=== PATIENT | female | born 1995 | race Caucasian/White ===

== ENCOUNTER 2024-03-04 11:11 | Emergency (ER) | payer OTHER, SELFPAY ==
--- NOTE | 2024-03-04 11:38 | ED_ITS ---
HPI - Fever General Chief Complaint: Upper Respiratory Symptoms Stated Complaint: Flu symptoms Time Seen by Provider: 03/04/24 12:10 Source: patient Mode of arrival: ambulatory Limitations: no limitations History of Present Illness HPI Narrative: This is a 28-year-old female with no known medical history presents with fatigue, malaise, myalgias, cough, headache, weakness since . Patient took Tylenol at 10:00 and is not really helping symptoms. Denies sick contacts. Denies chest pain, shortness of breath, nausea, vomiting, diarrhea, vision changes dizziness, weakness. NIH stroke scale 0 Related Data Previous Rx's ?Medication ?Instructions ?Recorded albuterol sulfate 90 mcg/actuation 2 inh inhalation Q4-6H PRN 03/04/24 breath activated powder inhaler shortness of breath or wheezing #1 ea benzonatate 100 mg capsule 100 mg PO BID PRN cough #20 caps 03/04/24 Allergies Allergy/AdvReac Type Severity Reaction Status Date / Time amoxicillin Allergy Swelling Verified 03/04/24 11:41 Review of Systems Review of Systems: Yes all other systems are reviewed and are negative [facility] Past Medical History Attestation statement: The following information was validated with the patient. Source: old records reviewed and nursing notes reviewed Social History Social History Advance Directives: No Advance Directives Information Provided: No Physical Exam Vital Signs: Vital Signs: Last Vital Signs Temp 98.7 F 03/04/24 11:39 Pulse 95 03/04/24 11:39 Resp 18 03/04/24 11:39 BP 121/71 03/04/24 11:39 Pulse Ox 98 03/04/24 11:39 O2 Del Method Room Air 03/04/24 11:39 BMI result Body Mass Index 22.6 vss Appearance: Alert.? Oriented X3.? No acute distress.? Head: Normocephalic, atraumatic, no step-offs or deformities Eyes: Pupils equal, round and reactive to light.? ENT: Pharynx normal.? Neck: Normal inspection.? Neck supple.? CVS: Normal heart rate and rhythm.? Pulses normal.? Respiratory: No respiratory distress.? Breath sounds normal.? Abdomen: Soft and nontender.? Skin: Skin warm and dry.? Normal skin color.? Normal skin turgor.? Extremities: No lower extremity edema.? No calf ttp. 5/5 strength to bilateral upper and lower extremities Back: No midline tenderness, no C-spine tenderness, full range of motion, no CVA tenderness bilaterally Neuro: Oriented X 3.? No motor deficit.? No sensory deficit. CN 2-12 intact Course Course Course Narrative: This is a Rapid Medical Examination (RME) in triage, full HPI, ROS, assessment and plan per primary provider in the Main ED. 28 y/o female with history of hypothyroidism who is presenting for evaluation of fever up to 104 at home that started yesterday. +cough and headache. Fever resolved after 1000 mg at tylenol this morning. VSS in triage. Nontoxic appearing. Plan: COVID and Flu swab Reevaluation(s) Reevaluation #1: Influenza positive. No indication for Tamiflu. Supportive measures. Educated patient on diagnosis and treatment plan, answered all question, patient verbalizes understanding. At this time patient will be discharged home, advised to return with new or worsening symptoms. Educated on worrisome signs and symptoms and when to return. At this time I feel comfortable discharge home. Time: 12:50 Medical Decision Making Medical Decision Making [facility] Narrative: 1214 28-year-old female presents with viral symptoms for the past 3 days. No known sick contacts Physical exam benign History and physical exam concerning for viral illness flu versus COVID versus RSV. Unlikely PE, pneumonia, ACS, acute respiratory distress, meningitis or encephalitis. Plan at this time viral testing. Differential Diagnosis Differential Diagnoses: The differential diagnosis associated with the presentation includes History and physical exam concerning for viral illness flu versus COVID versus RSV. Unlikely PE, pneumonia, ACS, acute respiratory distress, meningitis or encephalitis. Admission/Observation Consideration of admission/observation: Escalation of care including admission/observation considered Lab Data MDM Lab Attestation statement: I reviewed the patient's lab results. Labs: Lab Results 03/04/24 Range/Units 11:37 COVID-19 (CHARLES) Negative (Negative) COVID-19 Clin Com See Note Influenza Type A (NANCY) Positive A (Negative) Influenza Type B (NANCY) Negative (Negative) Influenza A & B Note See Note Critical Care Time Critical Care Time Critical Care Time: No Discharge Plan Discharge Clinical Impression: Influenza Patient Disposition: Home, Self-Care Instructions: Influenza (ED) Additional Instructions: Take your medications as prescribed. If you were prescribed antibiotics today, it is important that you take your medication to their entirety, do not skip any doses, do not finish them early. Follow-up with your primary care provider this week. Return to the emergency department with new or worsening symptoms. Such as fevers, chills, chest pain, shortness of breath, nausea, vomiting, dizziness, headache, vision changes, lethargy In case of emergency call 911 You can take ibuprofen every 6 hours Tylenol every 4 as needed for fever, pain or discomfort. Prescriptions: New albuterol sulfate 90 mcg/actuation aerosol powdr breath activated 2 inh inhalation Q4-6H PRN (Reason: shortness of breath or wheezing) Qty: 1 0RF benzonatate 100 mg capsule 100 mg PO BID PRN (Reason: cough) Qty: 20 0RF Referrals: Physician,None [Primary Care Provider] - 2 days Stand Alone Forms: Work/School Release Print Language: Bermudian
[2024-03-04 11:39] VITALS: BP 121/71; PULSE 95; RESP 18; TEMP 37.1; O2SAT 98; BMI 22.6
[2024-03-04 11:59] LABS: COVID-19 Test Negative (Negative); IDNOW Serial# 08D9AD1C
[2024-03-04 12:01] LABS: IDNOW Serial# 152EDE1D; Influenza A Positive (Negative); Influenza B2 Negative (Negative)
[2024-03-04 12:54] VITALS: BP 131/82; PULSE 99; RESP 22; TEMP 37.3; O2SAT 98
[2024-03-04 13:22] VITALS: O2SAT 98
[2024-03-04 13:24] VITALS: BP 131/82; PULSE 99; RESP 20; TEMP 37.3; O2SAT 98
== END 2024-03-04 13:24 | disposition home or self-care (01) ==
PROVIDERS: Physician Assistant; Emergency Provider Student in an Organized Health Care Education/Training Program
DX: J10.1 Influenza due to other identified influenza virus with other respiratory manifestations (principal); M79.10 Myalgia, unspecified site; R51.9 Headache, unspecified; R05.9 Cough, unspecified; Z11.52 Encounter for screening for COVID-19
CPT/HCPCS: 87502; 87635; 99283; 99284

== ENCOUNTER 2025-09-02 08:04 | Emergency (ER) | payer OTHER, SELFPAY ==
[2025-09-02 08:09] VITALS: BP 146/97; PULSE 87; RESP 18; TEMP 36.4; O2SAT 99; BMI 22.5
--- NOTE | 2025-09-02 08:25 | ED_ITS ---
HPI - Back Pain/Injury General Chief Complaint: Back Pain/Injury Stated Complaint: Back pain and spasms Time Seen by Provider: 09/02/25 08:24 Source: patient Mode of arrival: ambulatory Limitations: no limitations History of Present Illness ED Provider: Lorri Mackey PA-C HPI Narrative: Patient seeks medical attention today for evaluation of back pain. Past medical history significant for disc herniation at the L4-L5 level. 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 She reports after this was sudden done of holding him onto the stretcher and trying to pick him up off the ground several times about half an hour after into her shift she felt low back pain that was gradual and persistent. She did follow up with occupational health services at her job who diagnosed her with a strain from put her on light duty. Almost 2 months later she followed up with pt [facility] to obtain an MRI of her back which showed and confirmed the disc herniation. Since that time she received 1 injection into her right sciatica which was aggravated and she went to physical therapy and now she has been doing work conditioning. One week ago they had her graduate to lifting 45 lb from ground level to waist level she did this activity on Wednesday which was mildly uncomfortable but no significant pain but the next day yesterday when patient was bending over in her kitchen she felt instant pain in the same area again has been in a back spasm ever since that time causing her to cry and not be comfortable in any position. She has tried her prescribed Flexeril and it has not made any difference. She tried walking and stretching but has been able to tolerate any positional changes as her back feels quite stiff. There is no radiation or weakness into her limbs she denies any paresthesias. No saddle anesthesia no change or loss in her bladder or bowel function. She has no prior history of cancer or IV drug use and no unintentional weight loss or night sweats. As her job does not have any assigned duty she has been out of work since November. She denies any outside causative factors. MD elicited complaint: back pain Related Data Previous Rx's ?Medication ?Instructions ?Recorded albuterol sulfate 90 mcg/actuation 2 inh inhalation Q4 -6H PRN 03/04/24 breath activated powder inhaler shortness of breath or wheezing #1 ea benzonatate 100 mg capsule 100 mg PO BID PRN cough #20 caps 03/04/24 diazepam 2 mg tablet (Valium) 2 mg PO DAILY PRN severe muscle 09/02/25 spasm #3 tabs Allergies Allergy/AdvReac Type Severity Reaction Status Date / Time amoxicillin Allergy Swelling Verified 09/02/25 08:09 [facility] Social History Social History Alcohol intake: current Alcohol intake frequency: holidays/special occasions only Advance Directives: No Advance Directives Information Provided: Yes Do you have a plan to hurt others: No Plan Physical Exam Exam: Exam: General: Appears in no acute distress, appears well-nourished body habitus is normal, appears stated age. No septic or ill-appearing. Vitals were reviewed normal, and PMH/Social and Surgical hx was reviewed, including allergies and current medications. - reviewed for prior visits here Head: Normocephalic, no abnormal lesions noted. Eyes: EOMI. ENMT: moist oral mucosa, no edematous nasal turbinates, erythema, or purulent d/c noted. No erythema, normal appearance, and intact tympanic membrane. Hearing intact. No mastoid tenderness b/l. Normal posterior pharynx and structures. Uvula is midline no trismus. Neck: trachea midline, no lymphadenopathy. No nuchal rigidity. Cardiovascular: Peripheral perfusion is normal; S1 and S2 are present, and no M/R/G is present. RRR Respiratory: no respiratory distress, lungs clear to auscultation b/l, respirations full and symmetric. No flail chest, chest wall tenderness, or crepitus was noted. Speaking in full smooth sentences. Abdomen: non-distended, nontender Extremities: Warm and appear well perfused. Moving extremities without difficulty. Neg SLR b/l (reproduces pain in low back only), b/l lumbar paraspinous tenderness with moderate spasm, lumbar flexion 20 degrees from standing, able to sit with hips flexed to 90 degress, slow positing with straight back, no midline tenderness, step-offs or deformities of entire spine, no lesions, no sciatic notch or GT tenderness Psych: Cooperative, calm. Neuro: Alert and orientated. No obvious focal deficits. Vital Signs: Vital Signs: Last Vital Signs Temp 97.6 F 09/02/25 08:54 Pulse 87 09/02/25 08:54 Resp 18 09/02/25 08:54 BP 146/97 H 09/02/25 08:54 Pulse Ox 99 09/02/25 08:54 O2 Del Method Room Air 09/02/25 08:54 BMI result Body Mass Index 22.5 Medications Administered Discontinued Medications Generic Name Dose Route Start Last Admin Trade Name Emre PRN Reason Stop Dose Admin Diazepam 4 mg 09/02/25 08:38 09/02/25 08:44 Diazepam 2 Mg Tablet PO 09/02/25 08:39 4 mg ONCE ONE Administration Medical Decision Making Medical Decision Making MDM Narrative: Well appearing 29 y/o with PMH sig for HNP presenting to the emergency department today for evaluation of back pain s/p twist and lift mechanism yesterday at home. She is afebrile with no infectious sxs. This patient presents with back pain most consistent with lumbar strain sequela with muscle spasm. Differential diagnoses include lumbago versus musculoskeletal spasm/strain versus sciatica. No back pain red flags on history or physical. Presentation not consistent with malignancy (lack of history of malignancy, lack of B symptoms), fracture (no trauma, no bony tenderness to palpation), cauda equina (no bowel or urinary incontinence/retention, no saddle anesthesia, no distal weakness), AAA, viscus perforation, pulmonary embolism, renal colic, pyelonephritis (afebrile, no CVAT, no urinary symptoms). Given the clinical picture, there is no indication for imaging at this time. Plan: pain control, supportive care, muscle relaxants and ortho follow-up as indicated Differential Diagnosis Differential Diagnoses: The differential diagnosis associated with the presentation includes See MDM Admission/Observation Consideration of admission/observation: Escalation of care including admission/observation considered Patient would have been admitted to the hospital had her work up had any findings where hospital admission was appropriate and her clinical presentation warranted hospital admission. Independent Historian Clinical information obtained from an independent historian. History obtained from or confirmed by: Spouse Tests considered The following testing was considered but not selected: would have considered lumbar spine imaging with CT/ XRAY if trauma or midline ttp or red flags. would have considered MRI of spine if concern for NVC was present Prescription Management I considered prescription management with: Pain Medication Chronic Conditions Patient?s care impacted by: Other Critical Care Time Critical Care Time Critical Care Time: No Discharge Plan Discharge Clinical Impression: Lumbar spine strain, Muscle spasm of back Patient Disposition: Home, Self-Care Instructions: Muscle Spasm (ED) Additional Instructions: You were evaluated for lower back pain. You have known disc herniation at the level of L4 and L5. there is no evidence of neurovascular compromise today to warrant emergent MRI imaging. It was significant spasm you were given a muscle relaxant while here and a prescription for a few more at home. BACK CARE Use Motrin/Advil (ibuprofen) 600 mg every 6 hours. Take this with food. Take this regularly for the next 3-5 days and then as needed. In addition, You can use Tylenol (acetaminophen) 650 mg every 6 hrs as needed for pain. Do not take more than 3000 mg in one day! Use intermittent heat 4 or 5 times a day, 20 minutes at a time, for a few days. You may use topical therapy such as IcyHot with Lidocaine or Aspercream with Lidocaine, both of which are available over the counter. Do not perform any heavy lifting, driving or operating any heavy machinery especially within 12 hours of taking the Valium. Consider the use of topical therapies such as lidocaine or Salonpas patches do not use ice or heat at the same time. As we discussed walking around as best if you must sit down make sure given yourself lower back support as well as bending her knees. When you lay down at night make sure again lower back support along with bending her knees with a cushion underneath. Keep your follow-up appointment scheduled with [facility]. this c wednesday. Return immediately to the Emergency Department if you develop any increased or uncontrolled pain, numbness, tingling, or weakness of the extremities, difficulty urinating or passing stools. Prescriptions: New diazepam [Valium] 2 mg tablet 2 mg PO DAILY PRN (Reason: severe muscle spasm) Qty: 3 0RF No Action albuterol sulfate 90 mcg/actuation aerosol powdr breath activated 2 inh inhalation Q4-6H PRN (Reason: shortness of breath or wheezing) Qty: 1 0RF benzonatate 100 mg capsule 100 mg PO BID PRN (Reason: cough) Qty: 20 0RF Referrals: [facility] [Outside] Referral Note: Appt is on Wednesday Interventions: ED Discharge Assessment Last Done: 09/02/25 08:54 Discharge Date/Time: 09/02/25 08:54 Print Language: Austrian
[2025-09-02 08:54] VITALS: BP 146/97; PULSE 87; RESP 18; TEMP 36.4; O2SAT 99
== END 2025-09-02 08:54 | disposition home or self-care (01) ==
PROVIDERS: Emergency Provider Emergency Medicine; PCP Nurse Practitioner Family
DX: S39.012A Strain of muscle, fascia and tendon of lower back, initial encounter (principal); M62.830 Muscle spasm of back; X50.1XXA Overexertion from prolonged static or awkward postures, initial encounter; Y93.89 Activity, other specified; Y92.89 Other specified places as the place of occurrence of the external cause; Y99.8 Other external cause status; Z87.39 Personal history of other diseases of the musculoskeletal system and connective tissue
CPT/HCPCS: 99282; 99283